=== PATIENT | male | born 1990 | race Caucasian/White ===

== ENCOUNTER 2017-02-06 18:05 | Emergency (ER) | payer BC ==
[~2017-02-06] VITALS: Ht 185.4 cm; Wt 97.5 kg
[2017-02-06] MEDS ORDERED: VIBRAMYCIN100 MG ORAL (18:40)
--- NOTE | 2017-02-06 18:42 | Emergency Room Report ---
History of Present Illness General Chief Complaint: Upper Extremity Injury Present Illness HPI 27 y/o male c/o multiple complaints. States for the past 3 weeks he has had a sore on his penis that is non-tender but occasionally is irritated when it brushes up against his underwear along with a rash on his face and a sore throat. Additionally, patient was diagnosed with a paronychia on his left index finger. States that he went to urgent care and was given mupirocin and Bactrim which he has taken w/o improvement of sxs w/ good compliance and w/o AE. States that his sxs are unchanged and his penis sore is getting larger. States he is pending an STD test which was taken at the urgent care. States he has a hx of tobacco use (dip and cigarette) since he was a teenager. Currently has no modifying factors and symptoms are constant. Denies any penile discharge, scrotal pain / masses, discharge from wounds, drainage, dysuria, n/v/f/c/d, abd pain, back pain, neck pain, photophobia, phonophobia, CP, SOB or headache. Allergies: Coded Allergies: No Known Allergies (Unverified , 02/06/17) Patient History Past Medical History: see triage record Past Surgical History: none Pertinent Family History: none Social History: Reports: smoking Reviewed Nursing Documentation: PMH: Agreed, PSxH: Agreed Review of Systems All Other Systems: negative except mentioned in HPI Physical Exam Vital Signs Date Time Temp Pulse Resp B/P (MAP) Pulse Ox O2 Delivery O2 Flow Rate FiO2 02/06/17 18:33 98.2 91 16 145/89 97 Room Air Sp02 EP Interpretation: reviewed, normal General Appearance: no apparent distress, alert, GCS 15, non-toxic Head: normocephalic, atraumatic Eyes: bilateral eye normal inspection, bilateral eye PERRL ENT: hearing grossly normal, no angioedema, normal voice, uvula midline, tonsillar swelling, other - No tonsilar erythema or exudates Neck: full range of motion, supple/symm/no masses Respiratory: normal inspection Cardiovascular #1: regular rate, rhythm, no edema Genitourinary: other - 1cm ulcerative lesion on right lateral aspect of penis that is NTTP w/o discharge or local swelling or erythema Musculoskeletal: back normal, gait/station normal, normal range of motion Neurologic: alert, oriented x3, responsive, motor strength/tone normal, sensory intact, speech normal Psychiatric: judgement/insight normal, memory normal, mood/affect normal, no suicidal/homicidal ideation Skin: normal color, warm/dry, well hydrated, rash - erythematous rash along facial hair line that appear papular / pustular. Paronychia present on left index finger. Medical Decision Making PA Attestation Dr. Mckay is my supervising physician with whom patient management has been discussed with. Diagnostic Impression: Primary Impression: Chancre Additional Impression: Paronychia ER Course Pt. presents to the ED c/o multiple complaints. Differential includes viral pharyngitis, GC/ Chlamydia, syphilis, HSV, HPV, bacterial pharyngitis peritonsillar abscess tonsils stone and meningitis Vital signs: are WNL, pt. is afebrile H&PE are most consistent with Chancre and swollen painful tonsils likely Secondary Syphilis ORDERS: none required at this time, the diagnosis is clinical ED INTERVENTIONS: 2.4 mil units Bicillin DISCHARGE: At this time pt. is stable for d/c to home. Will provide printed patient care instructions, and any necessary prescriptions. Care plan and follow up instructions have been discussed with the patient prior to discharge. Last Vital Signs Date Time Temp Pulse Resp B/P (MAP) Pulse Ox O2 Delivery O2 Flow Rate FiO2 02/06/17 18:33 98.2 91 16 145/89 97 Room Air Disposition: HOME, SELF-CARE Scripts Acetaminophen With Codeine (T#4) (TYLENOL #4 TAB*) Y Tab 1 TAB ORAL Q8H Y for For Pain, #20 TAB 0 Refills Prov: SABRY,TAMEEM P.A. 02/06/17 Doxycycline Hyclate* (VIBRAMYCIN*) 100 Mg Capsule 100 MG ORAL EVERY 12 HOURS for 14 Days, #28 CAP 0 Refills Prov: SABRY,TAMEEM P.A. 02/06/17 Patient Instructions: Paronychia, Syphilis Additional Instructions: Take medication as directed. Patient advised to follow up with community clinic for formal STD screening. In general, watch out for any genital itching, burning , sores, or discharge. But be aware that many STIs do not cause any symptoms. The best way to know for sure if you have an STI is to be screened. If you have an STI, you will need treatment. The right treatment will depend on the type of STI you have. If you do have an infection, you might need to tell the people you could have infected. There is no surefire way to prevent all STIs, but there are things you can do to reduce your chances of catching one. The most important thing you can do is to wear a condom every time you have sex. Both male and female condoms can protect against STIs. But be aware that male condoms made out of "natural materials," such as sheep intestine, do NOT protect against STIs. If you are 26 years old or younger, you can get a vaccine to protect against HPV, the virus that causes genital warts. If you do not have hepatitis A or B and have not already gotten the vaccine for hepatitis A or B, you can get those vaccines, too. If your partner has herpes, he or she can reduce the chances of infecting you by taking a medicine called valacyclovir. If you are at very high risk of catching HIV, you might be able to take a pill every day to reduce the chances that you will get HIV. This is an option only for very few at-risk people. Patient instructed to take ibuprofen and tylenol as needed for pain. Patient to return for wound check in 5-7 days either here, urgent care or with PCP. Advised patient to keep site of infection elevated above the level of their heart 3 or 4 times a day, for 30 minutes each time to help reduce swelling. Patient is to keep the infected area clean and dry. They can take a shower or bath, but be sure to pat the area dry with a towel afterward. Patient instructed to not put any antibiotic ointments or creams on the area. Patient should come back sooner if their symptoms do not get better within 3 days of starting treatment or if the red area gets bigger, more swollen, or more painful. ELAN RICKETTS Feb 06, 2017 18:42
[2017-02-06] MEDS ORDERED: Bicillin LA 2,400,000 units IM ONE (18:45)
[2017-02-06] MEDS ORDERED: ACETAMINOPHEN-1 EAC2 ORAL (18:47)
[2017-02-06 19:01] VITALS: BP 145/89
[2017-02-06 19:12] VITALS: BP 145/89
== END 2017-02-06 19:12 | disposition home or self-care (01) ==
LOC: EMR 18:30
DX: A51.0 Primary genital syphilis (principal); L03.012 Cellulitis of left finger; F17.200 Nicotine dependence, unspecified, uncomplicated
CPT/HCPCS: 96372; 99284

== ENCOUNTER 2017-11-20 20:35 | Emergency (ER) | payer BC ==
[~2017-11-20] VITALS: Ht 185.4 cm; Wt 83.9 kg
[~2017-11-20 20:35] MED LIST: ACETAMINOPHEN-1 EAC2 ORAL; VIBRAMYCIN100 MG ORAL
[2017-11-20] MEDS ORDERED: NKM (20:47)
[2017-11-20] MEDS ORDERED: GABAPENTIN100 MG ORAL (21:21)
[2017-11-20 21:36] VITALS: BP_SYST 117
[2017-11-20 22:05] LABS: HEMATOCRIT 44.5 % (42.0-52.0); HEMOGLOBIN 14.9 G/DL (14.2-18.0); MEAN CORPUSCULAR VOLUME 89 FL (80-99); PLATELET COUNT 231 K/UL (150-450); RED BLOOD COUNT 4.98 M/UL (4.70-6.10); RED CELL DISTRIBUTION WIDTH 12.3 % (11.6-14.8); WHITE BLOOD COUNT 13.1 K/UL (4.8-10.8)
[2017-11-20 22:16] LABS: CHLORIDE 106 MMOL/L (98-107)
[2017-11-20 22:28] LABS: BLOOD UREA NITROGEN 13 mg/dL (7-18)
[2017-11-20 22:30] LABS: ALBUMIN/GLOBULIN RATIO 1.1 (1.0-2.7)
[2017-11-20 22:32] LABS: ALANINE AMINOTRANSFERASE 130 U/L (12-78); ALBUMIN 3.7 G/DL (3.4-5.0); ALKALINE PHOSPHATASE 63 U/L (46-116); ANION GAP 8 mmol/L (5-15); ASPARTATE AMINO TRANSFERASE 57 U/L (15-37); BILIRUBIN,TOTAL 0.2 MG/DL (0.2-1.0); CALCIUM 9.1 MG/DL (8.5-10.1); CARBON DIOXIDE 28 MMOL/L (21-32); CREATININE 1.5 MG/DL (0.55-1.30); SODIUM 142 MMOL/L (136-145)
[2017-11-20 23:00] VITALS: BP 137/82
--- NOTE | 2017-11-20 23:14 | Diagnostic Imaging Report ---
EXAM: CT Head Without Intravenous Contrast CLINICAL HISTORY: Headache TECHNIQUE: Axial computed tomography images of the head/brain without intravenous contrast. CTDI is 0.15, 70.38 mGy and DLP is 1471 mGy-cm. One or more of the following dose reduction techniques were used: automated exposure control, adjustment of the mA and/or kV according to patient size, use of iterative reconstruction technique. COMPARISON: No relevant prior studies available. FINDINGS: Brain: Unremarkable. No acute hemorrhage. Normal roper-white differentiation. No significant mass effect. Ventricles: Unremarkable. No ventriculomegaly. Bones/joints: Unremarkable. No acute fracture. Soft tissues: Unremarkable. Sinuses: Unremarkable as visualized. No acute sinusitis. Mastoid air cells: Unremarkable. IMPRESSION: No acute intracranial abnormality.
--- NOTE | 2017-11-20 23:15 | Emergency Room Report ---
History of Present Illness General Chief Complaint: Seizure Source: Patient Present Illness HPI 27-year-old status post seizure. Patient was brought in by friend who found patient unconscious in car. Friend was unsure whether patient had a seizure. Patient states he does have history of seizures. States he takes gabapentin for his seizures. Patient states that his seizures may be anxiety related. Denies any recent drug use. 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 Complaining of headache. Throbbing, 8 out of 10, nonradiating. Denies chest pain or shortness of breath. No other aggravating relieving factors. Denies any other associated symptoms Allergies: Coded Allergies: No Known Allergies (Unverified , 02/06/17) Patient History Past Medical History: seizures Past Surgical History: none Pertinent Family History: none Social History: Denies: smoking, alcohol use, drug use Immunizations: UTD Reviewed Nursing Documentation: PMH: Agreed; PSxH: Agreed Nursing Documentation-PMH Past Medical History: No History, Except For Hx Seizures: Yes Review of Systems All Other Systems: negative except mentioned in HPI Physical Exam Vital Signs Date Time Temp Pulse Resp B/P (MAP) Pulse Ox O2 Delivery O2 Flow Rate FiO2 11/20/17 20:44 98.9 88 16 113/57 97 Room Air 99.0 Sp02 EP Interpretation: reviewed, normal General Appearance: no apparent distress, alert, GCS 15, non-toxic Head: normocephalic, atraumatic Eyes: bilateral eye normal inspection, bilateral eye PERRL ENT: hearing grossly normal, normal pharynx, no angioedema, normal voice Neck: full range of motion, supple, no bony tend, supple/symm/no masses Respiratory: chest non-tender, lungs clear, normal breath sounds, speaking full sentences Cardiovascular #1: regular rate, rhythm, no edema Cardiovascular #2: 2+ carotid (R), 2+ carotid (L), 2+ radial (R), 2+ radial (L) , 2+ dorsalis pedis (R), 2+ dorsalis pedis (L) Gastrointestinal: normal bowel sounds, non tender, soft, non-distended, no guarding, no rebound Rectal: deferred Genitourinary: normal inspection, no CVA tenderness Musculoskeletal: back normal, gait/station normal, normal range of motion, non- tender Neurologic: alert, oriented x3, responsive, motor strength/tone normal, sensory intact, speech normal Psychiatric: judgement/insight normal, memory normal, mood/affect normal, no suicidal/homicidal ideation Reflexes: 3+ bicep (R), 3+ bicep (L), 3+ tricep (R), 3+ tricep (L), 3+ knee (R) , 3+ knee (L) Skin: normal color, no rash, warm/dry, well hydrated Lymphatic: no adenopathy Medical Decision Making Diagnostic Impression: Primary Impression: Seizure disorder ER Course Hospital Course 27-year-old M presents to ED status post seizure. h/o anxiety. takes gabapentin Differential diagnosis includes- breakthrough seizure, alcohol abuse, noncompliance with medication Clinical course Patient placed on stretcher. Initial history and physical I ordered labs, IV fluids, motrin, CT brain Labs-electrolytes okay, no leukocytosis, hemoglobin/hematocrit stable. CT Brain ok Patient allowed to rest is now awake alert oriented x3. ambulating without difficulty. Family is at bedside and can take patient home. Diagnosis - seizure disorder stable and discharged to home with Rx Gabapentin. Followup with PMD. Return to ED if symptoms recur or worsen Labs Test 11/20/17 21:30 White Blood Count 13.1 K/UL (4.8-10.8) Red Blood Count 4.98 M/UL (4.70-6.10) Hemoglobin 14.9 G/DL (14.2-18.0) Hematocrit 44.5 % (42.0-52.0) Mean Corpuscular Volume 89 FL (80-99) Mean Corpuscular Hemoglobin 30.0 PG (27.0-31.0) Mean Corpuscular Hemoglobin Concent 33.6 G/DL (32.0-36.0) Red Cell Distribution Width 12.3 % (11.6-14.8) Platelet Count 231 K/UL (150-450) Mean Platelet Volume 7.2 FL (6.5-10.1) Neutrophils (%) (Auto) % (45.0-75.0) Lymphocytes (%) (Auto) % (20.0-45.0) Monocytes (%) (Auto) % (1.0-10.0) Eosinophils (%) (Auto) % (0.0-3.0) Basophils (%) (Auto) % (0.0-2.0) Sodium Level 142 MMOL/L (136-145) Potassium Level 4.0 MMOL/L (3.5-5.1) Chloride Level 106 MMOL/L (98-107) Carbon Dioxide Level 28 MMOL/L (21-32) Anion Gap 8 mmol/L (5-15) Blood Urea Nitrogen 13 mg/dL (7-18) Creatinine 1.5 MG/DL (0.55-1.30) Estimat Glomerular Filtration Rate 55.7 mL/min (>60) Glucose Level 121 MG/DL (74-106) Calcium Level 9.1 MG/DL (8.5-10.1) Total Bilirubin 0.2 MG/DL (0.2-1.0) Aspartate Amino Transf (AST/SGOT) 57 U/L (15-37) Alanine Aminotransferase (ALT/SGPT) 130 U/L (12-78) Alkaline Phosphatase 63 U/L (46-116) Total Protein 7.2 G/DL (6.4-8.2) Albumin 3.7 G/DL (3.4-5.0) Globulin 3.5 g/dL Albumin/Globulin Ratio 1.1 (1.0-2.7) Acetaminophen Level < 2 MCG/ML (10-30) Serum Alcohol < 3 mg/dL CT/MRI/US Diagnostic Results CT/MRI/US Diagnostic Results : Imaging Test Ordered: CT Head Impression no acute process Last Vital Signs Date Time Temp Pulse Resp B/P (MAP) Pulse Ox O2 Delivery O2 Flow Rate FiO2 11/20/17 21:36 72 20 117/ 98 Room Air 11/20/17 20:44 98.9 99.0 Status: improved Disposition: HOME, SELF-CARE Condition: Stable Scripts Gabapentin* (GABAPENTIN*) 600 Mg Tablet 600 MG ORAL THREE TIMES A DAY for 3 Days, TAB Prov: Ta Cee MD 11/20/17 Referrals: NOT CHOSEN [facility]/,REFERRING (PCP) Ta Cee MD Nov 20, 2017 23:15
[2017-11-20] MEDS ORDERED: GABAPENTIN600 MG ORAL (23:25)
[2017-11-20 23:40] VITALS: BP 137/82
== END 2017-11-20 23:40 | disposition home or self-care (01) ==
LOC: EMR 21:17
DX: G40.909 Epilepsy, unspecified, not intractable, without status epilepticus (principal); Z79.899 Other long term (current) drug therapy; R51 Headache
CPT/HCPCS: 36415; 70450; 80053; 85007; 85025; 96360; 99284; G0480; 80329